=== PATIENT | female | born 1975 | race Caucasian/White ===

== ENCOUNTER 2017-11-16 19:38 | Emergency (ER) | payer SELFPAY ==
[~2017-11-16] VITALS: Ht 157.5 cm; Wt 80.0 kg
[2017-11-16 20:19] VITALS: Ht 157.5 cm; Wt 80.0 kg
== END 2017-11-17 00:22 | disposition left against medical advice (07) ==
LOC: FTE 19:38
DX: Z53.21 Procedure and treatment not carried out due to patient leaving prior to being seen by health care provider (principal)

== ENCOUNTER 2018-05-14 11:28 | Day surgery (SDC) | END 2018-05-14 17:30 | disposition home or self-care (01) ==